=== PATIENT | male | born 1950 | race Caucasian/White ===

== ENCOUNTER 2018-01-07 13:29 | Emergency (ER) | payer MEDICAID, MEDICARE, OTHER ==
[~2018-01-07] VITALS: Ht 165.1 cm; Wt 74.0 kg
[~2018-01-07 13:29] MED LIST: ACET-709 PO; ASPI-621 PO; ATOR40TA78 PO; CEPH-376 PO; METO25TA35 PO; NITR0.4T SL; PHEN-418 PO
[2018-01-07] MEDS ORDERED: SODIUM CHLORIDE FLUSH 10ML SYR IVF ONE (14:00)
[2018-01-07 14:23] LABS: BASOPHILS # (AUTO) 0.04 x10^3/uL (0-0.1); BASOPHILS % (AUTO) 0 % (0-1); EOSINOPHILS # (AUTO) 0.06 x10^3/uL (0-0.4); EOSINOPHILS % (AUTO) 1 % (1-7); LYMPHOCYTES # (AUTO) 2.61 x10^3/uL (1-3.4); LYMPHOCYTES % (AUTO) 28 % (22-44); MD NO; MEAN CORPUSCULAR HEMOGLOBIN 31.3 pg (27.5-34.5); MEAN CORPUSCULAR HGB CONC 34.4 g/dL (33.2-36.2); MEAN CORPUSCULAR VOLUME 90.8 fL (81-97); MEAN PLATELET VOLUME 7.8 fL (7.4-10.4); MONOCYTES % (AUTO) 7 % (2-9); NEUTROPHILS # (AUTO) 5.98 x10^3/uL (1.8-6.8); NEUTROPHILS % (AUTO) 64 % (42-75); PLATELET COUNT 248 x10^3/uL (130-400); RED BLOOD COUNT 5.08 x10^6/uL (4.38-5.82); RED CELL DISTRIBUTION WIDTH 13.8 % (9.4-14.8)
[2018-01-07 14:29] LABS: ALBUMIN 4.3 g/dL (3.4-5.0); ANION GAP 9 mmol/L (5-15); CHLORIDE 106 mmol/L (98-107); CREATININE 0.84 mg/dL (0.7-1.3)
[2018-01-07 14:35] LABS: CULTURE INDICATED? YES; MICROSCOPIC INDICATED
[2018-01-07] MEDS ORDERED: OMNIPAQUE 350 MG/ML, 150 ML BOTTLE ONE (16:08)
[2018-01-07] MEDS ORDERED: LIDOCAINE 2%,20 ML JEL.PF.APP MM ONE (17:33)
[2018-01-07 18:58] VITALS: BP 133/84
[2018-01-08] MEDS ORDERED: FENTANYL PF 250 MCG/5ML ONE (19:23)
[2018-01-08] MEDS ORDERED: DEXAMETHASONE 4 MG/ML, 1ML ONE (19:44)
[2018-01-08] MEDS ORDERED: CEFAZOLIN 1,000 MG ONE (19:53)
[2018-01-08] MEDS ORDERED: SUCCINYLCHOLINE 20 MG/ML, 10ML ONE (20:01)
[2018-01-08] MEDS ORDERED: ONDANSETRON 2MG/ML, 2ML ONE (20:01)
[2018-01-08] MEDS ORDERED: ROCURONIUM 10MG/ML,5ML ONE (20:02)
== END 2018-01-07 19:00 | disposition home or self-care (01) ==
LOC: ED 16:20
DX: N40.1 Benign prostatic hyperplasia with lower urinary tract symptoms (principal); R33.8 Other retention of urine; R31.0 Gross hematuria
CPT/HCPCS: 36415; 51702; 74178; 80048; 81001; 82040; 85025; 87086; 99285; Q9967; J0690; J1100; J2405; J3010; J0330

== ENCOUNTER 2018-01-08 14:54 | Inpatient (IN) | payer MEDICARE ==
[~2018-01-08] VITALS: Ht 165.1 cm; Wt 76.7 kg
[2018-01-08 15:44] LABS: BASOPHILS # (AUTO) 0.04 x10^3/uL (0-0.1); BASOPHILS % (AUTO) 1 % (0-1); EOSINOPHILS # (AUTO) 0.07 x10^3/uL (0-0.4); EOSINOPHILS % (AUTO) 1 % (1-7); LYMPHOCYTES # (AUTO) 2.81 x10^3/uL (1-3.4); LYMPHOCYTES % (AUTO) 35 % (22-44); MD NO; MEAN CORPUSCULAR HEMOGLOBIN 30.8 pg (27.5-34.5); MEAN CORPUSCULAR VOLUME 90.5 fL (81-97); MEAN PLATELET VOLUME 7.5 fL (7.4-10.4); MONOCYTES # (AUTO) 0.54 x10^3/uL (0.2-0.8); MONOCYTES % (AUTO) 7 % (2-9); NEUTROPHILS # (AUTO) 4.57 x10^3/uL (1.8-6.8); NEUTROPHILS % (AUTO) 57 % (42-75); PLATELET COUNT 217 x10^3/uL (130-400); RED BLOOD COUNT 4.84 x10^6/uL (4.38-5.82); RED CELL DISTRIBUTION WIDTH 13.8 % (9.4-14.8)
[2018-01-08] MEDS ORDERED: SODIUM CHLORIDE 0.9% 1,000 ML IV ONE (18:36)
[2018-01-08] MEDS ORDERED: POLYETHYLENE GLYCOL 17 GM PACKET PO PRN (19:00)
[2018-01-08] MEDS ORDERED: ONDANSETRON ODT 4 MG PO PRN (19:00)
[2018-01-08] MEDS ORDERED: SODIUM CHLORIDE FLUSH 10ML SYR IVF PRN (19:00)
[2018-01-08] MEDS ORDERED: ACETAMINOPHEN 325 MG TABLET PO PRN (19:00)
[2018-01-08] MEDS ORDERED: SODIUM CHLORIDE FLUSH 10ML SYR IVF ONE (19:00)
[2018-01-08] MEDS ORDERED: BISACODYL 10 MG SUPP PR PRN (19:00)
[2018-01-08] MEDS ORDERED: HYDROmorphone 1 MG/ML, 1ML IV PRN (19:30)
[2018-01-08] MEDS ORDERED: OXYcodone 5 MG/5 ML ORAL.SOL UDC PO PRN (19:30)
[2018-01-08] MEDS ORDERED: hydrALAzine 20 MG/ML, 1ML IV PRN (19:30)
[2018-01-08] MEDS ORDERED: MORPHINE SULFATE 4 MG/ML, 1ML IVPush PRN (19:30)
[2018-01-08] MEDS ORDERED: MEPERIDINE/PF 25MG/0.5ML IVPush PRN (19:30)
[2018-01-08] MEDS ORDERED: PROMETHAZINE 25 MG/ML, 1ML IV PRN (19:30)
[2018-01-08] MEDS ORDERED: LABETALOL 5MG/ML, 20ML IV PRN (19:30)
[2018-01-08] MEDS ORDERED: ONDANSETRON 2MG/ML, 2ML IV PRN (19:30)
[2018-01-08] MEDS ORDERED: FENTANYL PF 100 MCG/2ML IV PRN (19:30)
[2018-01-08] MEDS ORDERED: DEXAMETHASONE 4 MG/ML, 1ML ONE (19:43)
[2018-01-08] MEDS ORDERED: FENTANYL PF 100 MCG/2ML ONE (19:43)
[2018-01-08] MEDS ORDERED: ROCURONIUM 10MG/ML,5ML ONE (19:43)
[2018-01-08] MEDS ORDERED: PROPOFOL 10 MG/ML, 20ML ONE (19:43)
[2018-01-08] MEDS ORDERED: CEFAZOLIN 1,000 MG ONE (19:43)
[2018-01-08] MEDS ORDERED: SUCCINYLCHOLINE 20 MG/ML, 10ML ONE (19:43)
[2018-01-08] MEDS ORDERED: ONDANSETRON 2MG/ML, 2ML ONE (19:43)
[2018-01-08] MEDS ORDERED: OXYcodone 5 MG/5 ML ORAL.SOL UDC ONE (20:29)
[2018-01-08] MEDS ORDERED: ACETAMINOPHEN 650 MG/20.3 ML UDC ONE (20:29)
[2018-01-08] MEDS: SODIUM CHLORIDE FLUSH 10ML SYR IVF SCH (21:00)
[2018-01-08 21:30] VITALS: BP 152/89
[2018-01-08] MEDS ORDERED: OPIUM/BELLADONNA SUPP.RECT 16.2-60 MG PR PRN (22:00)
[2018-01-09 00:30] VITALS: BP 124/85
[2018-01-09 04:15] VITALS: BP 115/80
[2018-01-09 05:18] LABS: ALBUMIN 3.4 g/dL (3.4-5.0); ANION GAP 9 mmol/L (5-15); CALCIUM 8.8 mg/dL (8.5-10.1); CHLORIDE 109 mmol/L (98-107)
[2018-01-09 05:21] LABS: ALANINE AMINOTRANSFERASE 34 U/L (12-78); ALKALINE PHOSPHATASE 106 U/L (45-117); BILIRUBIN,TOTAL 0.4 mg/dL (0.2-1.0); CREATININE 0.75 mg/dL (0.7-1.3); TOTAL PROTEIN 7.2 g/dL (6.4-8.2)
[2018-01-09 05:22] LABS: BASOPHILS # (AUTO) 0.01 x10^3/uL (0-0.1); BASOPHILS % (AUTO) 0 % (0-1); EOSINOPHILS % (AUTO) 0 % (1-7); LYMPHOCYTES # (AUTO) 1.22 x10^3/uL (1-3.4); LYMPHOCYTES % (AUTO) 19 % (22-44); MD NO; MEAN CORPUSCULAR HEMOGLOBIN 31.8 pg (27.5-34.5); MEAN CORPUSCULAR HGB CONC 35.4 g/dL (33.2-36.2); MONOCYTES # (AUTO) 0.09 x10^3/uL (0.2-0.8); MONOCYTES % (AUTO) 1 % (2-9); NEUTROPHILS # (AUTO) 5.09 x10^3/uL (1.8-6.8); NEUTROPHILS % (AUTO) 79 % (42-75); PLATELET COUNT 197 x10^3/uL (130-400); RED BLOOD COUNT 4.44 x10^6/uL (4.38-5.82)
[2018-01-09 06:42] VITALS: BP 125/75
[2018-01-09] MEDS ORDERED: SENNA/DOCUSATE TABLET PO SCH (09:00)
[2018-01-09] MEDS ORDERED: FINASTERIDE 5 MG TABLET PO SCH (09:00)
[2018-01-09] MEDS: SODIUM CHLORIDE FLUSH 10ML SYR IVF SCH (09:01)
[2018-01-09] MEDS ORDERED: FINA5TAB4 PO (10:00)
[2018-01-09 12:25] VITALS: BP 117/79
== END 2018-01-09 12:49 | disposition home or self-care (01) | DRG 714 ==
LOC: ED 18:24 → EDIP 18:36 → 4NOR 21:15
PROVIDERS: ADMIT Internal Medicine; ATTEND Internal Medicine
PROC: 0V508ZZ Destruction of Prostate, Via Natural or Artificial Opening Endoscopic (ICD-10-PCS; 2018-01-08)
PROC: 0TCC8ZZ Extirpation of Matter from Bladder Neck, Via Natural or Artificial Opening Endoscopic (ICD-10-PCS; principal; 2018-01-08 21:45)
DX: I86.2 Pelvic varices (principal); E78.00 Pure hypercholesterolemia, unspecified; I10 Essential (primary) hypertension; I25.2 Old myocardial infarction; Z90.79 Acquired absence of other genital organ(s); Z85.840 Personal history of malignant neoplasm of eye; Z98.49 Cataract extraction status, unspecified eye; N32.89 Other specified disorders of bladder
CPT/HCPCS: 36415; 80053; 84153; 85025; 99285; G0378; J0690; J1100; J2405; J2704; J3010; G0103; J0330; J7030

== ENCOUNTER 2018-01-23 14:49 | Inpatient (IN) | payer MEDICARE ==
[~2018-01-23] VITALS: Ht 165.1 cm; Wt 72.7 kg
[~2018-01-23 14:49] MED LIST changes: +FINA5TAB4 PO
[2018-01-23] MEDS ORDERED: SODIUM CHLORIDE FLUSH 10ML SYR IVF ONE (16:00)
[2018-01-23] MEDS ORDERED: SODIUM CHLORIDE 0.9% 1,000ML IVBOLUS ONE (16:00)
[2018-01-23 16:17] LABS: BASOPHILS % (AUTO) 0 % (0-1); EOSINOPHILS % (AUTO) 0 % (1-7); LYMPHOCYTES # (AUTO) 0.48 x10^3/uL (1-3.4); LYMPHOCYTES % (AUTO) 4 % (22-44); MD NO; MEAN CORPUSCULAR HEMOGLOBIN 31.6 pg (27.5-34.5); MEAN CORPUSCULAR HGB CONC 34.8 g/dL (33.2-36.2); MEAN CORPUSCULAR VOLUME 90.6 fL (81-97); MEAN PLATELET VOLUME 7.8 fL (7.4-10.4); MONOCYTES # (AUTO) 0.99 x10^3/uL (0.2-0.8); MONOCYTES % (AUTO) 7 % (2-9); NEUTROPHILS # (AUTO) 12.25 x10^3/uL (1.8-6.8); NEUTROPHILS % (AUTO) 89 % (42-75); PLATELET COUNT 202 x10^3/uL (130-400); RED BLOOD COUNT 4.85 x10^6/uL (4.38-5.82); RED CELL DISTRIBUTION WIDTH 13.4 % (9.4-14.8)
[2018-01-23] MEDS ORDERED: ACETAMINOPHEN 500 MG TABLET ONE (16:26)
[2018-01-23 16:27] LABS: ALBUMIN 3.8 g/dL (3.4-5.0); ANION GAP 13 mmol/L (5-15); CALCIUM 9.2 mg/dL (8.5-10.1); CHLORIDE 106 mmol/L (98-107)
[2018-01-23 16:30] LABS: ALANINE AMINOTRANSFERASE 23 U/L (12-78); ALKALINE PHOSPHATASE 143 U/L (45-117); CREATININE 0.99 mg/dL (0.7-1.3); TOTAL PROTEIN 8.2 g/dL (6.4-8.2)
[2018-01-23] MEDS ORDERED: ACETAMINOPHEN 500 MG TABLET PO ONE (16:30)
[2018-01-23] MEDS ORDERED: CEFTRIAXONE PMX 1GM/50ML 50 ML IV ONE (16:30)
[2018-01-23] MEDS ORDERED: CEFTRIAXONE PMX 1GM/50ML 50 ML ONE (16:41)
[2018-01-23 16:48] LABS: CULTURE INDICATED? YES; MICROSCOPIC INDICATED
[2018-01-23] MEDS ORDERED: LABETALOL 5MG/ML, 20ML IVPush PRN (17:30)
[2018-01-23] MEDS ORDERED: ONDANSETRON 2MG/ML, 2ML IVPush PRN (17:30)
[2018-01-23] MEDS ORDERED: PHENAZOPYRIDINE 200 MG TABLET PO ONE (17:30)
[2018-01-23] MEDS ORDERED: CEFTRIAXONE PMX 2GM/50ML 50 ML IV SCH (17:30)
[2018-01-23] MEDS ORDERED: POLYETHYLENE GLYCOL 17 GM PACKET PO PRN (17:30)
[2018-01-23] MEDS ORDERED: ONDANSETRON ODT 4 MG PO PRN (17:30)
[2018-01-23] MEDS ORDERED: PHENAZOPYRIDINE 200 MG TABLET ONE (17:46)
[2018-01-23] MEDS: SODIUM CHLORIDE 0.9% 1,000 ML IV SCH (17:52)
[2018-01-23 18:36] VITALS: BP 117/76
[2018-01-23 19:38] VITALS: BP 99/64
[2018-01-23] MEDS ORDERED: CEFTRIAXONE PMX 1GM/50ML 50 ML IV SCH ×2 (20:30)
[2018-01-24] VITALS (8 sets, daily range): BP systolic 106–126; BP diastolic 70–84
[2018-01-24] MEDS: SODIUM CHLORIDE 0.9% 1,000 ML IV SCH ×3 (02:17→17:36)
[2018-01-24 05:59] LABS: BASOPHILS # (AUTO) 0.03 x10^3/uL (0-0.1); BASOPHILS % (AUTO) 0 % (0-1); EOSINOPHILS # (AUTO) 0.02 x10^3/uL (0-0.4); EOSINOPHILS % (AUTO) 0 % (1-7); LYMPHOCYTES # (AUTO) 1.44 x10^3/uL (1-3.4); LYMPHOCYTES % (AUTO) 12 % (22-44); MD NO; MEAN CORPUSCULAR HEMOGLOBIN 31.6 pg (27.5-34.5); MEAN CORPUSCULAR HGB CONC 34.7 g/dL (33.2-36.2); MEAN PLATELET VOLUME 7.9 fL (7.4-10.4); MONOCYTES # (AUTO) 0.89 x10^3/uL (0.2-0.8); MONOCYTES % (AUTO) 8 % (2-9); NEUTROPHILS # (AUTO) 9.47 x10^3/uL (1.8-6.8); NEUTROPHILS % (AUTO) 80 % (42-75); PLATELET COUNT 178 x10^3/uL (130-400); RED CELL DISTRIBUTION WIDTH 13.7 % (9.4-14.8)
[2018-01-24 06:12] LABS: CHLORIDE 111 mmol/L (98-107)
[2018-01-24 06:40] LABS: ALANINE AMINOTRANSFERASE 17 U/L (12-78); ALBUMIN 2.8 g/dL (3.4-5.0); ALKALINE PHOSPHATASE 108 U/L (45-117); ANION GAP 11 mmol/L (5-15); BILIRUBIN,TOTAL 0.8 mg/dL (0.2-1.0); CALCIUM 8.1 mg/dL (8.5-10.1); CREATININE 0.79 mg/dL (0.7-1.3); THYROID STIMULATING HORMONE 0.871 mIU/L (0.358-3.740); TOTAL PROTEIN 6.7 g/dL (6.4-8.2)
[2018-01-24] MEDS: SENNA/DOCUSATE TABLET PO SCH (09:00)
[2018-01-24] MEDS: FINASTERIDE 5 MG TABLET PO SCH (09:30)
[2018-01-24] MEDS: CEFTRIAXONE PMX 2GM/50ML 50 ML IV SCH (17:35)
[2018-01-25 01:25] VITALS: BP 145/79
[2018-01-25] MEDS: SODIUM CHLORIDE 0.9% 1,000 ML IV SCH ×3 (01:36→18:05)
[2018-01-25 04:47] LABS: BASOPHILS # (AUTO) 0.03 x10^3/uL (0-0.1); BASOPHILS % (AUTO) 0 % (0-1); EOSINOPHILS # (AUTO) 0.07 x10^3/uL (0-0.4); EOSINOPHILS % (AUTO) 1 % (1-7); LYMPHOCYTES # (AUTO) 1.47 x10^3/uL (1-3.4); LYMPHOCYTES % (AUTO) 19 % (22-44); MD NO; MEAN CORPUSCULAR HEMOGLOBIN 31.4 pg (27.5-34.5); MEAN CORPUSCULAR HGB CONC 34.5 g/dL (33.2-36.2); MEAN CORPUSCULAR VOLUME 91.1 fL (81-97); MEAN PLATELET VOLUME 7.4 fL (7.4-10.4); MONOCYTES % (AUTO) 8 % (2-9); NEUTROPHILS # (AUTO) 5.65 x10^3/uL (1.8-6.8); NEUTROPHILS % (AUTO) 72 % (42-75); PLATELET COUNT 186 x10^3/uL (130-400); RED BLOOD COUNT 4.16 x10^6/uL (4.38-5.82)
[2018-01-25 04:54] LABS: ALBUMIN 2.9 g/dL (3.4-5.0); ANION GAP 8 mmol/L (5-15); CALCIUM 8.3 mg/dL (8.5-10.1); CHLORIDE 110 mmol/L (98-107); CREATININE 0.74 mg/dL (0.7-1.3)
[2018-01-25 06:50] VITALS: BP 138/83
[2018-01-25] MEDS: SENNA/DOCUSATE TABLET PO SCH (09:00)
[2018-01-25] MEDS: FINASTERIDE 5 MG TABLET PO SCH (09:08)
[2018-01-25] MEDS ORDERED: PHENAZOPYRIDINE 200 MG TABLET PO PRN (12:00)
[2018-01-25] MEDS ORDERED: PHENAZOPYRIDINE 200 MG TABLET PO ONE (12:00)
[2018-01-25 12:35] VITALS: BP 128/78
[2018-01-25] MEDS: CEFTRIAXONE PMX 2GM/50ML 50 ML IV SCH (18:05)
[2018-01-25 19:56] VITALS: BP 137/84
[2018-01-26 01:33] VITALS: BP 111/76
[2018-01-26] MEDS: SODIUM CHLORIDE 0.9% 1,000 ML IV SCH ×2 (01:53→09:46)
[2018-01-26 04:50] LABS: BASOPHILS # (AUTO) 0.02 x10^3/uL (0-0.1); BASOPHILS % (AUTO) 0 % (0-1); EOSINOPHILS # (AUTO) 0.17 x10^3/uL (0-0.4); EOSINOPHILS % (AUTO) 3 % (1-7); LYMPHOCYTES # (AUTO) 1.46 x10^3/uL (1-3.4); LYMPHOCYTES % (AUTO) 22 % (22-44); MD NO; MEAN CORPUSCULAR HEMOGLOBIN 30.9 pg (27.5-34.5); MEAN CORPUSCULAR HGB CONC 33.8 g/dL (33.2-36.2); MEAN CORPUSCULAR VOLUME 91.2 fL (81-97); MEAN PLATELET VOLUME 7.7 fL (7.4-10.4); MONOCYTES # (AUTO) 0.54 x10^3/uL (0.2-0.8); MONOCYTES % (AUTO) 8 % (2-9); NEUTROPHILS # (AUTO) 4.56 x10^3/uL (1.8-6.8); NEUTROPHILS % (AUTO) 68 % (42-75); PLATELET COUNT 207 x10^3/uL (130-400); RED BLOOD COUNT 4.51 x10^6/uL (4.38-5.82); RED CELL DISTRIBUTION WIDTH 13.4 % (9.4-14.8)
[2018-01-26 04:54] LABS: ALBUMIN 2.9 g/dL (3.4-5.0); ANION GAP 9 mmol/L (5-15); CALCIUM 8.5 mg/dL (8.5-10.1); CHLORIDE 110 mmol/L (98-107); CREATININE 0.76 mg/dL (0.7-1.3)
[2018-01-26 07:17] VITALS: BP 129/80
[2018-01-26] MEDS: FINASTERIDE 5 MG TABLET PO SCH (09:42)
[2018-01-26] MEDS: SENNA/DOCUSATE TABLET PO SCH (09:43)
[2018-01-26] MEDS ORDERED: SULF1TAB24 PO (12:30)
[2018-01-26] MEDS ORDERED: CEFTRIAXONE PMX 2GM/50ML 50 ML IV SCH (12:30)
[2018-01-26] MEDS ORDERED: PHEN-583 PO (12:30)
[2018-01-26] MEDS ORDERED: TAMS-11 PO (12:31)
[2018-01-26 13:10] VITALS: BP 135/85
== END 2018-01-26 15:00 | disposition home or self-care (01) | DRG 698 ==
LOC: ED 17:41 → EDIP 18:06 → 4WST 18:35 → DCLOUNGE 01-26 14:54
PROVIDERS: ADMIT Hospitalist; ATTEND Hospitalist
DX: T83.511A Infection and inflammatory reaction due to indwelling urethral catheter, initial encounter (principal); A41.9 Sepsis, unspecified organism; I50.30 Unspecified diastolic (congestive) heart failure; J98.11 Atelectasis; K59.00 Constipation, unspecified; E78.5 Hyperlipidemia, unspecified; N30.91 Cystitis, unspecified with hematuria; N40.0 Benign prostatic hyperplasia without lower urinary tract symptoms; E78.00 Pure hypercholesterolemia, unspecified; I11.0 Hypertensive heart disease with heart failure; I25.10 Atherosclerotic heart disease of native coronary artery without angina pectoris; I25.2 Old myocardial infarction
CPT/HCPCS: 0399T; 36415; 71045; 76770; 80048; 80053; 81001; 82040; 83605; 83735; 84100; 84145; 84439; 84443; 85025; 87040; 87077; 87086; 87186; 93005; 93306; 96365; 99285; G0378; J0696; J7030

== ENCOUNTER 2019-07-29 13:52 | Emergency (ER) | payer MEDICARE, OTHER ==
[~2019-07-29] VITALS: Ht 165.1 cm; Wt 74.7 kg
[~2019-07-29 13:52] MED LIST changes: -ASPI-621 PO; +ASPI81TA45 PO; -NITR0.4T SL; +NITR0.4T41 SL; +PHEN-583 PO; +SULF1TAB24 PO; +TAMS-11 PO
--- NOTE | 2019-07-29 14:23 | NUR ---
PT [facility] LEFT UPPER ARM INJURY FROM FALL. NO LOC, DID NOT HIT HEAD. PT IS UNABLE TO LIFT ARM WITH OUT PAIN. DENIES N/T. NO DEFORMITY. PULSE 2+ RADIAL. DENIES CP, SOB, COUGH.
[2019-07-29] MEDS ORDERED: KETOROLAC 30 MG/1 ML IM ONE (15:00)
[2019-07-29 15:52] VITALS: BP 132/81
== END 2019-07-29 15:54 | disposition home or self-care (01) ==
LOC: ED 14:30
DX: S40.022A Contusion of left upper arm, initial encounter (principal); W01.0XXA Fall on same level from slipping, tripping and stumbling without subsequent striking against object, initial encounter; Y93.89 Activity, other specified; Y92.009 Unspecified place in unspecified non-institutional (private) residence as the place of occurrence of the external cause; Y99.8 Other external cause status
CPT/HCPCS: 99283